=== PATIENT | male | born 1990 | race Caucasian/White ===

== ENCOUNTER 2023-03-16 18:06 | Emergency (ER) | payer OTHER ==
[~2023-03-16] VITALS: Ht 182.9 cm; Wt 93.0 kg
[2023-03-16] MEDS ORDERED: PENI500T (18:26)
[2023-03-16] MEDS ORDERED: KETOROLAC 60MG 2ML VIAL IM ONE (19:35)
[2023-03-16] MEDS ORDERED: IBUP-1022 PO (19:45)
[2023-03-16 19:55] VITALS: BP 157/81
== END 2023-03-16 19:56 | disposition home or self-care (01) ==
LOC: M ED 18:06
DX: K04.7 Periapical abscess without sinus (principal)
CPT/HCPCS: 96372; 99283; J1885